=== PATIENT | male | born 1975 | race Caucasian/White ===

== ENCOUNTER 2016-06-03 21:35 | Emergency (ER) | payer OTHER ==
[2016-06-03 21:43] VITALS: BP 156/93; PULSE 82; TEMP 97.8; O2SAT 98
[2016-06-03] MEDS ORDERED: Oxycodone/Acetaminophen 5/325 mg Tab PO STA (22:13)
--- NOTE | 2016-06-03 22:14 | C.PDOC ---
History Of Present Illness Patient is a 40 year old male with a PMHx of NIDDM who presents to the ER with a complaint of right inguinal pain for the past month. Patient reports, pain is localized, non-radiating, sharp, worse with walking. Otherwise, pt denies known trauma or injury, fever, chills, abd. pain, N/V/D, UTi sx, back pain, denies weakness, sensory or vascular deficits to Right leg, denies calf pain, skin changes. Ambulate to Ed for evaluation, not in any apparent distress. Time Seen by Provider: 06/03/16 21:50 Chief Complaint (Nursing): Groin Pain History Per: Patient History/Exam Limitations: no limitations Onset/Duration Of Symptoms: Days (Month) Current Symptoms Are (Timing): Still Present Recent travel outside of the [place]: No Past Medical History Reviewed: Historical Data, Nursing Documentation, Vital Signs Vital Signs: Last Vital Signs Temp 97.8 F 06/03/16 21:38 Pulse 82 06/03/16 21:38 Resp 20 06/03/16 22:51 BP 156/93 H 06/03/16 21:38 Pulse Ox 98 06/03/16 23:05 - Medical History PMH: HTN, Hyperlipidemia Surgical History: No Surg Hx Family History: States: Unknown Family Hx - Social History Hx Alcohol Use: No Hx Substance Use: No - Immunization History Hx Tetanus Toxoid Vaccination: No Hx Influenza Vaccination: Yes Hx Pneumococcal Vaccination: No Review Of Systems Genitourinary: Positive for: Other (Right inguinal pain) Neurological: Negative for: Weakness, Other (Sensory deficits) Physical Exam - Physical Exam Appears: Well, No Acute Distress Skin: Normal Color, Warm, Dry, No Rash, No Ecchymosis Eye(s): bilateral: PERRL Nose: Normal Throat: Normal Neck: Normal ROM, Supple Cardiovascular: Rhythm Regular Respiratory: Normal Breath Sounds, No Stridor, No Wheezing Gastrointestinal/Abdominal: Normal Exam, Soft, No Tenderness, No Distention, No Guarding, No Rebound Back: Normal Inspection, No CVA Tenderness Extremity: Normal ROM (mild discomfort to Right hip abduction.), No Tenderness, No Deformity, No Swelling, Other (Right groin tenderness along inguinal ligament. No skin changes, no edema or swelling, no palpable deformity.) Neurological/Psych: Oriented x3, Normal Speech, Normal Motor, Normal Sensation, Normal Reflexes ED Course And Treatment O2 Sat by Pulse Oximetry: 98 Pulse Ox Interpretation: Normal - Other Rad Right hip, pelvis X-Ray: Interpreted by Me, Viewed By Me Interpretation: no acute fx or dislocation Progress Note: On re-evaluation, pt is afebrile, hemodynamicaly stable. NOn- toxic. Ambulatory in ED with stable gait. Abd: benign. RLE: exam c/w inquinal strain. FAROM, no neurovascular deficits. Neurologicaly intact. Imaging review and appears normal. UA- noraml study. FSBS 267. Pt advised on course of ds. ref. to f/u with PMD In 2-3 days for re-eval. return if any new changes. Disposition Counseled Patient/Family Regarding: Studies Performed, Diagnosis, Need For Followup, Rx Given - Disposition Referrals: Shirley Jorgensen MD [Medical Doctor] - Disposition: HOME/ ROUTINE Disposition Time: 22:20 Condition: STABLE Additional Instructions: Light duty to Right leg, avoid prolong walking Take pain medictaion as need Encourage fluids Follow up with PMD and Orthopedist in 2-3 days for re-evaluation. Return to Ed if any worsening or new changes. Prescriptions: Methocarbamol [Robaxin] 500 mg PO TID #14 tab traMADol [Ultram] 50 mg PO TID #7 tab Instructions: Diabetic Hyperglycemia (ED), Groin Pain (ED) - Clinical Impression Clinical Impression: Inguinal strain, Hyperglycemia due to type 2 diabetes mellitus - Scribe Statement The provider has reviewed the documentation as recorded by the Scribe Louis Garay All medical record entries made by the Scribe were at my direction and personally dictated by me. I have reviewed the chart and agree that the record accurately reflects my personal performance of the history, physical exam, medical decision making, and the department course for this patient. I have also personally directed, reviewed, and agree with the discharge instructions and disposition.
[2016-06-03] MEDS ORDERED: Oxycodone/Acetaminophen 5/325 mg Tab ONE (22:23)
[2016-06-03 22:29] LABS: URINE BILIRUBIN NEGATIVE (NEGATIVE); URINE BLOOD 1+ (NEGATIVE); URINE COLOR Straw (YELLOW); URINE GLUCOSE (UA) 3+ mg/dL (Normal); URINE KETONE NEGATIVE (NEGATIVE); URINE LEUKOCYTE ESTERASE NEG Leu/uL (Negative); URINE PROTEIN 1+ mg/dL (NEGATIVE); URINE UROBILINOGEN NORMAL mg/dL (0.2-1.0); WBC URINE 1 /hpf (0-5)
[2016-06-03 22:30] LABS: RBC URINE 5 /hpf (0-3)
[2016-06-03 22:52] VITALS: RESP 20
--- NOTE | 2016-06-04 08:54 | RAD ---
Indication: Pain Right hip with pelvis Comparison: None available Findings: Examination limited by habitus. No acute displaced fracture or dislocation identified. Sacroiliac joints appear intact. Mild constipation. Soft tissues appear unremarkable. No evidence of radiopaque foreign body. Impression: No acute displaced fracture or dislocation evident. If high clinical index of suspicion, suggest cross-sectional imaging for further evaluation. Otherwise, if symptoms persist or if there is continued clinical concern, x-ray follow-up in 7-10 days should be considered.
== END 2016-06-03 22:51 | disposition home or self-care (01) ==
LOC: C.ER 21:35
DX: S39.011A Strain of muscle, fascia and tendon of abdomen, initial encounter (principal); X58.XXXA Exposure to other specified factors, initial encounter; Y92.9 Unspecified place or not applicable; E11.65 Type 2 diabetes mellitus with hyperglycemia